=== PATIENT | female | born 1965 ===

== ENCOUNTER 2017-09-03 19:32 | Emergency (ER) | payer OTHER, BC ==
[2017-09-03 19:49] VITALS: O2SAT 99
[2017-09-03] MEDS ORDERED: Naproxen 500 MG TAB PO STA (20:13)
[2017-09-03] MEDS ORDERED: Naproxen 500 MG TAB PO ONE (21:18)
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
[2017-09-03 22:12] VITALS: BP 140/85; PULSE 80; RESP 16; TEMP 97.9
--- NOTE | 2017-09-04 10:00 | RAD ---
HISTORY: Back pain COMPARISON: No prior. FINDINGS: BONES: There is mild S-shaped scoliosis in the thoracolumbar spine. There is normal alignment of the thoracic vertebral bodies. There is normal thoracic kyphosis. There is diffuse bone demineralization. There is no acute fracture. DISC SPACES: There are multilevel degenerative changes with anterior osteophytes and reduced disc heights. SOFT TISSUES: There are no pathologic soft tissue calcifications. OTHER FINDINGS: Both sacroiliac joints are normal. IMPRESSION: No acute fracture. Multilevel degenerative disc disease.
--- NOTE | 2017-09-04 10:01 | RAD ---
PROCEDURE: Cervical Spine Radiographs. HISTORY: Pain. COMPARISON: None. FINDINGS: BONES: There is normal alignment of the cervical vertebral bodies. There is normal cervical lordosis. There is diffuse bone demineralization. There is no acute fracture or traumatic anterior listhesis. DISC SPACES: There is mild degenerative disc disease at C5-6 with mild anterior spurring and reduced disc height. The remaining disc heights are maintained. SOFT TISSUES: Normal. No prevertebral soft tissue swelling. OTHER FINDINGS: None. IMPRESSION: No acute fracture or traumatic anterolisthesis. Mild degenerative disc disease at C5-6.
--- NOTE | 2017-09-05 09:01 | CARD ---
APPROVED REPORT EKG Measurement Heart [id number] <Conclusion> Normal sinus rhythm Possible Left atrial enlargement Borderline ECG artefact present
== END 2017-09-03 22:24 | disposition home or self-care (01) ==
LOC: H.ER 19:32
DX: S16.1XXA Strain of muscle, fascia and tendon at neck level, initial encounter (principal); M54.9 Dorsalgia, unspecified; V43.52XA Car driver injured in collision with other type car in traffic accident, initial encounter; Y92.410 Unspecified street and highway as the place of occurrence of the external cause; E05.90 Thyrotoxicosis, unspecified without thyrotoxic crisis or storm

== ENCOUNTER 2018-02-07 06:12 | Emergency (ER) | payer BC, OTHER ==
[2018-02-07 06:35] VITALS: BMI 26.6
[2018-02-07 06:38] VITALS: RESP 18
--- NOTE | 2018-02-07 06:55 | ED PDOC ---
HPI: Neurologic - General Time Seen by Provider: 02/07/18 06:45 Chief Complaint (Nursing): Dizziness/Lightheaded Source: patient - History of Present Illness Allergies/Adverse Reactions: Allergies No Known Allergies Allergy (Verified 02/07/18 06:35) Home Medications: Ambulatory Orders Cyclobenzaprine [Cyclobenzaprine HCl] 10 mg PO TID PRN #15 tab 09/03/17 RX: Naproxen 500 mg PO BID #30 tab 09/03/17 RX: Meclizine [Meclizine*] 25 mg PO Q8 #15 tab 02/07/18 Additional Complaint(s): Hx of Amaris's Thyroiditis presenting with dizziness, states it started last night while showering, states its worse with head movement or changes in position, states its associated with nausea but no vomiting and stomach discomfort. Denies chest pain, shortness of breath, sweats, fevers, or recent illnesses. Denies headache. Dr. Hebert Past Medical History Reviewed: Historical Data, Nursing Documentation, Vital Signs Vital Signs: Last Vital Signs Temp 97.9 F 02/07/18 06:35 Pulse 78 02/07/18 06:35 Resp 18 02/07/18 06:35 BP 140/88 02/07/18 06:35 Pulse Ox 100 02/07/18 06:35 - Medical History PMH: Hyperthyroidism - Family History Family History: States: Unknown Family Hx - Home Medications Home Medications: Ambulatory Orders Medication Instructions Recorded Cyclobenzaprine [Cyclobenzaprine 10 mg PO TID PRN #15 tab 09/03/17 HCl] RX: Naproxen 500 mg PO BID #30 tab 09/03/17 RX: Meclizine [Meclizine*] 25 mg PO Q8 #15 tab 02/07/18 - Allergies Allergies/Adverse Reactions: Allergies Allergy/AdvReac Type Severity Reaction Status Date / Time No Known Allergies Allergy Verified 02/07/18 06:35 Review of Systems ROS Statement: Except As Marked, All Systems Reviewed And Found Negative Physical Exam - Reviewed Nursing Documentation Reviewed: Yes Vital Signs Reviewed: Yes - Physical Exam Appears: Positive for: Well, Non-toxic, No Acute Distress Head Exam: Positive for: ATRAUMATIC, NORMAL INSPECTION, NORMOCEPHALIC Skin: Positive for: Normal Color, Warm, DRY Eye Exam: Positive for: EOMI, Normal appearance, PERRL ENT: Positive for: Normal ENT Inspection Neck: Positive for: Normal, Painless ROM Cardiovascular/Chest: Positive for: Regular Rate, Rhythm Respiratory: Positive for: CNT, Normal Breath Sounds Gastrointestinal/Abdominal: Positive for: Normal Exam, Soft Back: Positive for: Normal Inspection Extremity: Positive for: Normal ROM Neurologic/Psych: Positive for: Alert, 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 Negative for: Mot or/Sensory Deficits - Laboratory Results Result Diagrams: 02/07/18 07:20 02/07/18 07:20 - ECG O2 Sat by Pulse Oximetry: 100 Pulse Ox Interpretation: Normal Medical Decision Making Medical Decision MakinAM Patient presenting with dizziness --Likely peripheral vertigo --Well appearing currently, but dizzy upon sitting up --Will endorse to Dr. Monae pending workup and re-bethanie Disposition - Clinical Impression Clinical Impression: Vertigo - Disposition Referrals: [facility] [Outside] Disposition: Transfer of Care Disposition Time: 07:00 Condition: FAIR Prescriptions: RX: Meclizine [Meclizine*] 25 mg PO Q8 #15 tab Instructions: Vertigo (a Type of Dizziness) Forms: [facility] ([place]) Patient Signed Over To: Charan Monae Handoff Comments: pending workup and re-eval
--- NOTE | 2018-02-07 07:46 | ED PDOC ---
- Laboratory Results Result Diagrams: 02/07/18 07:20 02/07/18 07:20 - ECG O2 Sat by Pulse Oximetry: 100 Medical Decision Making Medical Decision Making: Time: 0700 --Patient is endorsed to provider by Dr. Fournier, pending lab results and re- evaluation. Scribe Attestation: Documented by Debra Doll, acting as a scribe for Charan Monae MD. Provider Scribe Attestation: All medical record entries made by the Scribe were at my direction and personally dictated by me. I have reviewed the chart and agree that the record accurately reflects my personal performance of the history, physical exam, medical decision making, and the department course for this patient. I have also personally directed, reviewed, and agree with the discharge instructions and disposition. Disposition - Clinical Impression Clinical Impression: Vertigo - POA Present On Arrival: None - Disposition Referrals: [facility] [Outside] Disposition: Routine/Home Disposition Time: 08:24 Condition: FAIR Prescriptions: Meclizine [Meclizine*] 25 mg PO Q8 #15 tab Instructions: Vertigo (a Type of Dizziness) Forms: [employer] (Polish)
[2018-02-07 07:59] LABS: HEMOGLOBIN 13.6 g/dL (12.0-16.0); MEAN CELL VOLUME 83.4 fl (81.0-99.0); MEAN CORPUSCULAR HEMOGLOBIN 28.4 pg (27.0-31.0); RBC 4.79 Mil/uL (3.80-5.20); RED CELL DISTRIBUTION WIDTH 13.1 % (11.5-14.5); WHITE BLOOD COUNT 6.8 K/uL (4.8-10.8)
[2018-02-07 08:15] LABS: BLOOD UREA NITROGEN 17 mg/dl (7-17); CALCIUM 9.6 mg/dL (8.4-10.2); GFR NON-AFRICAN AMERICAN > 60
[2018-02-07 08:42] VITALS: BP 115/73; PULSE 75; TEMP 98.2
--- NOTE | 2018-02-07 09:28 | CARD ---
APPROVED REPORT Date of service: 02/07/2018 EKG Measurement Heart [id number] <Conclusion> Normal sinus rhythm Low voltage QRS Nonspecific ST abnormality Abnormal ECG
[2018-02-08 03:48] VITALS: O2SAT 100
== END 2018-02-07 08:46 | disposition home or self-care (01) ==
LOC: H.ER 06:12
DX: R42 Dizziness and giddiness (principal); E05.90 Thyrotoxicosis, unspecified without thyrotoxic crisis or storm